=== PATIENT | male | born 2000 | race Caucasian/White ===

== ENCOUNTER 2022-06-12 07:44 | Emergency (ER) | payer OTHER ==
[~2022-06-12] VITALS: Ht 180.3 cm; Wt 109.0 kg
[2022-06-12] MEDS ORDERED: ACETAMINOPHEN 325 MG TAB PO ONE (08:20)
[2022-06-12 09:13] LABS: RSV AMPLIFICATION NEGATIVE (NEGATIVE)
[2022-06-12 09:59] VITALS: BP 126/69
[2022-06-12] MEDS ORDERED: ONDA4TAB6 PO (10:14)
== END 2022-06-12 10:28 | disposition home or self-care (01) ==
LOC: M ED 07:44
DX: B34.8 Other viral infections of unspecified site (principal); Z20.822 Contact with and (suspected) exposure to COVID-19

== ENCOUNTER 2022-06-25 13:45 | Emergency (ER) | payer OTHER ==
[~2022-06-25] VITALS: Ht 182.9 cm; Wt 106.2 kg
[~2022-06-25 13:45] MED LIST: ONDA4TAB6 PO
[2022-06-25] MEDS ORDERED: MUCI600T31 PO (13:51)
[2022-06-25] MEDS ORDERED: BENZ-18 PO (13:51)
[2022-06-25] MEDS ORDERED: ALBUTEROL 90 MCG/ACT 8GM HFA INHALER INH ONE (17:05)
[2022-06-25 17:37] LABS: HEMOGLOBIN 14.3 g/dl (13.5-17.5); MEAN CORPUSCULAR HEMOGLOBIN 29.2 pg (27.0-33.0); MEAN CORPUSCULAR HGB CONC 33.3 g/dl (32.0-36.5); MEAN CORPUSCULAR VOLUME 87.9 fl (80.0-96.0); PLATELET COUNT, AUTOMATED 172 10^3/uL (150-450); RED BLOOD COUNT 4.89 10^6/uL (4.30-6.10); WHITE BLOOD COUNT 6.5 10^3/uL (4.0-10.0)
[2022-06-25 18:11] LABS: ATYPICAL LYMPH 29 % (0-5); BASOPHILS 2 % (0-1); BLOOD UREA NITROGEN 14 MG/DL (9-23); CALCIUM LEVEL 9.4 MG/DL (8.5-10.1); CARBON DIOXIDE LEVEL 30 MMOL/L (20-31); CHLORIDE LEVEL 105 MMOL/L (98-107); CREATININE FOR GFR 1.05 MG/DL (0.70-1.30); EOSINOPHILS 1 % (0-3); GLOMERULAR FILTRATION RATE > 60.0 (>60); GLUCOSE, FASTING 88 MG/DL (60-100); LYMPHOCYTES 42 % (16-44); MONOCYTES 7 % (0-5); NEUTROPHILS 19 % (28-66); PLATELET ESTIMATE NORMAL (NORMAL); POTASSIUM SERUM 5.1 MMOL/L (3.5-5.1); SODIUM LEVEL 141 MMOL/L (136-145)
[2022-06-25 18:44] LABS: MONO SCRN POSITIVE (NEGATIVE)
[2022-06-25] MEDS ORDERED: PRED20TA PO (19:04)
[2022-06-25] MEDS ORDERED: VENTAER INH (19:04)
[2022-06-25] MEDS ORDERED: predniSONE 20 MG TAB PO ONE (19:05)
[2022-06-25 19:10] VITALS: BP 134/72
== END 2022-06-25 19:12 | disposition home or self-care (01) ==
LOC: M ED 13:45
DX: R05.2 Subacute cough (principal); B27.90 Infectious mononucleosis, unspecified without complication; Z79.51 Long term (current) use of inhaled steroids; Z79.899 Other long term (current) drug therapy
CPT/HCPCS: 36415; 71046; 80048; 85025; 86308; 87486; 87581; 87633; 87798; 94640; 99283; J7512

== ENCOUNTER 2022-09-03 11:18 | Day surgery (SDC) | payer OTHER ==
[~2022-09-03] VITALS: Ht 182.9 cm; Wt 104.3 kg
[~2022-09-03 11:18] MED LIST changes: +BENZ-18 PO; +MUCI600T31 PO; +PRED20TA PO; +VENTAER INH; +ceFAZolin SOD 2 GM in IV 1 EA IV ONE
[2022-09-03] MEDS ORDERED: LIDOCAINE 1% MDV 20ML VIAL As Ordered ONE (11:53)
[2022-09-03] MEDS ORDERED: BUPIVACAINE HCL 0.5% 30ML VIAL As Ordered ONE (11:53)
[2022-09-03] MEDS ORDERED: MIDAZOLAM INJ 2MG/2ML VIAL As Ordered ONE (12:37)
[2022-09-03] MEDS ORDERED: propofoL 500 MG/50 ML VIAL As Ordered ONE (12:37)
[2022-09-03] MEDS ORDERED: LIDOCAINE 2% 100MG/5ML SDV (FOR ANES.) As Ordered ONE (12:38)
[2022-09-03] MEDS ORDERED: fentaNYL 100 MCG/2 ML INJECTION As Ordered ONE (12:38)
[2022-09-03] MEDS ORDERED: KETAMINE HCL 200MG/20ML VIAL As Ordered ONE (13:28)
[2022-09-03] MEDS ORDERED: HYDR-3713 PO (13:36)
[2022-09-03 15:15] VITALS: BP 114/64
== END 2022-09-03 15:30 | disposition home or self-care (01) ==
LOC: M SDC 11:18
PROVIDERS: ATTEND Podiatrist Foot & Ankle Surgery
DX: M72.2 Plantar fascial fibromatosis (principal); J45.20 Mild intermittent asthma, uncomplicated
CPT/HCPCS: 29893; J0690; J2250; J3010; S0020

== ENCOUNTER 2023-12-23 06:12 | Emergency (ER) | payer OTHER ==
[~2023-12-23] VITALS: Ht 180.3 cm; Wt 95.4 kg
[~2023-12-23 06:12] MED LIST changes: +HYDR-3713 PO; +ONDA-282 PO; -ONDA4TAB6 PO; -ceFAZolin SOD 2 GM in IV 1 EA IV ONE
[2023-12-23 06:37] LABS: BASO % 0.3 % (0.0-1.0); EOS # 0.1 10^3/uL (0.0-0.5); EOS % 0.8 % (0.0-3.0); HEMATOCRIT 44.3 % (42.0-52.0); HEMOGLOBIN 15.4 g/dl (13.5-17.5); LYMPH # 1.6 10^3/uL (1.5-5.0); LYMPH % 18.7 % (24.0-44.0); MEAN CORPUSCULAR HEMOGLOBIN 30.9 pg (27.0-33.0); MEAN CORPUSCULAR HGB CONC 34.8 g/dl (32.0-36.5); MEAN CORPUSCULAR VOLUME 88.8 fl (80.0-96.0); MONO # 0.9 10^3/uL (0.0-0.8); MONO % 10.5 % (2.0-8.0); NEUTROPHILS % 69.6 % (36.0-66.0); PLATELET COUNT, AUTOMATED 226 10^3/uL (150-450); RED BLOOD COUNT 4.99 10^6/uL (4.30-6.10); WHITE BLOOD COUNT 8.7 10^3/uL (4.0-10.0)
[2023-12-23 07:07] LABS: ALBUMIN 4.3 G/DL (3.2-5.2); ALKALINE PHOSPHATASE 95 U/L (46-116); ALT/SGPT 21 U/L (7.0-40); AST/SGOT < 8 U/L (<34); BILIRUBIN,TOTAL 0.7 MG/DL (0.3-1.2); BLOOD UREA NITROGEN 17 MG/DL (9-23); CALCIUM LEVEL 9.6 MG/DL (8.5-10.1); CARBON DIOXIDE LEVEL 26 MMOL/L (20-31); CHLORIDE LEVEL 106 MMOL/L (98-107); CK-MB VALUE MASS 1.1 NG/ML (<3.6); CREATININE FOR GFR 0.87 MG/DL (0.70-1.30); GLOMERULAR FILTRATION RATE > 60.0 (>60); GLUCOSE, FASTING 100 MG/DL (60-100); POTASSIUM SERUM 4.2 MMOL/L (3.5-5.1); SODIUM LEVEL 136 MMOL/L (136-145); TOTAL PROTEIN 4.5 G/DL (5.7-8.2)
[2023-12-23 07:09] LABS: THYROID STIMULATING HORMONE 1.266 uIU/ML (0.55-4.78)
[2023-12-23 07:22] LABS: CPK CREATINE PHOSPHOKINASE 118 U/L (46-171); MB/CK RELATIVE INDEX 0.93 (< OR =4)
[2023-12-23 07:50] LABS: CK-MB VALUE MASS < 1.0 NG/ML (<3.6)
[2023-12-23 07:55] LABS: CPK CREATINE PHOSPHOKINASE 119 U/L (46-171); MB/CK RELATIVE INDEX 0.84 (< OR =4)
[2023-12-23 07:58] LABS: MAGNESIUM LEVEL 1.9 MG/DL (1.8-2.4)
[2023-12-23 08:45] VITALS: BP 129/72; O2SAT 97
[2023-12-23] MEDS ORDERED: HOLTER MONITOR XX (08:46)
[2023-12-23 08:54] VITALS: TEMP 99
[2023-12-24] MEDS ORDERED: IBUP200C29 PO (21:57)
== END 2023-12-23 09:02 | disposition home or self-care (01) ==
LOC: M ED 06:12
DX: R00.2 Palpitations (principal); M72.2 Plantar fascial fibromatosis; Z79.899 Other long term (current) drug therapy

== ENCOUNTER 2023-12-24 21:51 | Emergency (ER) | payer OTHER ==
[~2023-12-24] VITALS: Ht 180.3 cm; Wt 95.1 kg
[~2023-12-24 21:51] MED LIST changes: +HOLTER MONITOR XX
[2023-12-24] MEDS ORDERED: IBUP200C29 PO (21:57)
[2023-12-25] MEDS: NS 1,000 ML IV ONE (00:10)
[2023-12-25] MEDS ORDERED: ISOVUE-370 76% 100ML VIAL As Ordered ONE (00:57)
[2023-12-25 02:19] LABS: CK-MB VALUE MASS < 1.0 NG/ML (<3.6)
[2023-12-25 02:33] LABS: CPK CREATINE PHOSPHOKINASE 94 U/L (46-171); MB/CK RELATIVE INDEX 1.06 (< OR =4)
[2023-12-25 02:38] VITALS: BP 120/70; TEMP 97.2; O2SAT 97
== END 2023-12-25 02:44 | disposition home or self-care (01) ==
LOC: M ED 21:51
DX: R00.2 Palpitations (principal); N62 Hypertrophy of breast; Z79.1 Long term (current) use of non-steroidal anti-inflammatories (NSAID)
CPT/HCPCS: 36415; 71275; 82550; 82553; 84484; 93005; 93041; 99284; Q9967

== ENCOUNTER 2024-04-12 13:00 | Emergency (ER) | payer OTHER ==
[~2024-04-12] VITALS: Ht 180.3 cm; Wt 109.0 kg
[~2024-04-12 13:00] MED LIST changes: +IBUP200C29 PO
[2024-04-12 13:06] VITALS: BP 138/84; TEMP 97.9; O2SAT 98
[2024-04-12] MEDS ORDERED: LEXA1TAB (13:47)
[2024-04-12 14:32] LABS: BASO # 0.1 10^3/uL (0.0-0.2); BASO % 0.9 % (0.0-1.0); EOS # 0.1 10^3/uL (0.0-0.5); EOS % 1.5 % (0.0-3.0); HEMATOCRIT 46.4 % (42.0-52.0); HEMOGLOBIN 15.8 g/dl (13.5-17.5); LYMPH # 1.8 10^3/uL (1.5-5.0); LYMPH % 30.6 % (24.0-44.0); MEAN CORPUSCULAR HGB CONC 34.1 g/dl (32.0-36.5); MEAN CORPUSCULAR VOLUME 91.2 fl (80.0-96.0); MONO # 0.6 10^3/uL (0.0-0.8); MONO % 10.6 % (2.0-8.0); NEUTROPHILS # 3.3 10^3/uL (1.5-8.5); NEUTROPHILS % 55.7 % (36.0-66.0); PLATELET COUNT, AUTOMATED 235 10^3/uL (150-450); RED BLOOD COUNT 5.09 10^6/uL (4.30-6.10); WHITE BLOOD COUNT 5.9 10^3/uL (4.0-10.0)
[2024-04-12 15:03] LABS: CK-MB VALUE MASS < 1.0 NG/ML (<3.6)
[2024-04-12 15:06] LABS: ALBUMIN 4.1 G/DL (3.2-5.2); ALKALINE PHOSPHATASE 101 U/L (46-116); ALT/SGPT 43 U/L (7.0-40); AST/SGOT 13 U/L (<34); BILIRUBIN,DIRECT 0.1 MG/DL (<0.4); BILIRUBIN,TOTAL 0.5 MG/DL (0.3-1.2); BLOOD UREA NITROGEN 19 MG/DL (9-23); CALCIUM LEVEL 9.8 MG/DL (8.5-10.1); CARBON DIOXIDE LEVEL 30 MMOL/L (20-31); CHLORIDE LEVEL 108 MMOL/L (98-107); CREATININE FOR GFR 1.01 MG/DL (0.70-1.30); GLOMERULAR FILTRATION RATE > 60.0 (>60); GLUCOSE, FASTING 76 MG/DL (60-100); MAGNESIUM LEVEL 2.1 MG/DL (1.8-2.4); POTASSIUM SERUM 4.5 MMOL/L (3.5-5.1); SODIUM LEVEL 143 MMOL/L (136-145); TOTAL PROTEIN 7.3 G/DL (5.7-8.2)
[2024-04-12 15:08] LABS: THYROID STIMULATING HORMONE 1.317 uIU/ML (0.55-4.78)
[2024-04-12 15:10] LABS: CPK CREATINE PHOSPHOKINASE 125 U/L (46-171)
== END 2024-04-12 15:36 | disposition left against medical advice (07) ==
LOC: M ED 13:00
DX: Z53.21 Procedure and treatment not carried out due to patient leaving prior to being seen by health care provider (principal)